=== PATIENT | male | born 1995 | race African-American/Black ===

== ENCOUNTER 2018-08-24 18:03 | Emergency (ER) | payer SELFPAY ==
[~2018-08-24] VITALS: Ht 172.7 cm; Wt 100.0 kg
[2018-08-24] MEDS ORDERED: CYCLOBENZAPRINE 10MG TABLET PO ONE (23:30)
[2018-08-24] MEDS ORDERED: KETOROLAC 30MG/ML VIAL IM ONE (23:30)
[2018-08-25 01:21] VITALS: BP 128/72
== END 2018-08-25 01:22 | disposition home or self-care (01) ==
LOC: ER 18:03
DX: S16.1XXA Strain of muscle, fascia and tendon at neck level, initial encounter (principal); M54.9 Dorsalgia, unspecified; R03.0 Elevated blood-pressure reading, without diagnosis of hypertension; V49.49XA Driver injured in collision with other motor vehicles in traffic accident, initial encounter; Y93.89 Activity, other specified; Y92.488 Other paved roadways as the place of occurrence of the external cause
CPT/HCPCS: 72040; 96372; 99283; J1885